=== PATIENT | female | born 1985 | race Caucasian/White ===

== ENCOUNTER 2018-04-07 17:47 | Emergency (ER) | payer OTHER ==
[~2018-04-07] VITALS: Ht 162.6 cm; Wt 59.0 kg
[2018-04-07 17:48] VITALS: Ht 162.6 cm; Wt 59.0 kg
[2018-04-07 19:03] LABS: BASOPHIL % 0.4 % (0-2); PLATELET COUNT 310 x10^3mcL (130-400); RED CELL DISTRIBUTION WIDTH 11.9 % (11.5-14.5)
[2018-04-07 19:09] LABS: CALCIUM 8.3 mg/dL (8.5-10.1); CARBON DIOXIDE 26.5 mmol/L (21-32); CHLORIDE SERUM 103 mmol/L (98-107); CREATININE SERUM 0.6 mg/dL (0.6-1.0); GFR1 > 60 mL/min; GLUCOSE SERUM 176 mg/dL (74-106); POTASSIUM SERUM 3.5 mmol/L (3.5-5.1); SODIUM SERUM 139 mmol/L (136-145)
[2018-04-07 19:14] LABS: ALBUMIN 3.6 g/dL (3.4-5.0); ALKALINE PHOSPHATASE 134 U/L (46-116); ALT/SGPT 29 U/L (14-59); AST/SGOT 27 U/L (15-37); BILIRUBIN TOTAL 0.41 mg/dL (0.20-1.00); TOTAL PROTEIN, SERUM 7.5 g/dL (6.4-8.2)
[2018-04-07 19:41] LABS: UA SPECIFIC GRAVITY 1.025 (1.005-1.035); microscopic required? YES; urine erythrocyte 3+ (NEGATIVE)
[2018-04-07 21:25] VITALS: BP 103/67
== END 2018-04-07 21:25 | disposition home or self-care (01) ==
LOC: EDBD 17:47 → ED 17:47
PROVIDERS: Emergency Medicine
DX: J45.901 Unspecified asthma with (acute) exacerbation (principal); N76.0 Acute vaginitis
CPT/HCPCS: J2930; J7030; Q0092

== ENCOUNTER 2018-07-26 11:31 | Inpatient (IN) | payer OTHER ==
[~2018-07-26] VITALS: Ht 162.6 cm; Wt 71.2 kg
[2018-07-26 12:11] LABS: BASOPHIL % 0.3 % (0-2); PLATELET COUNT 316 x10^3mcL (130-400); RED CELL DISTRIBUTION WIDTH 12.3 % (11.5-14.5)
[2018-07-26 12:22] LABS: CALCIUM 8.6 mg/dL (8.5-10.1); CARBON DIOXIDE 28.8 mmol/L (21-32); CHLORIDE SERUM 100 mmol/L (98-107); CREATININE SERUM 0.8 mg/dL (0.6-1.0); GFR1 > 60 mL/min; GLUCOSE SERUM 149 mg/dL (74-106); POTASSIUM SERUM 3.1 mmol/L (3.5-5.1); SODIUM SERUM 136 mmol/L (136-145)
[2018-07-26 12:26] LABS: ALKALINE PHOSPHATASE 139 U/L (46-116); ALT/SGPT 37 U/L (14-59); AST/SGOT 34 U/L (15-37); BILIRUBIN TOTAL 0.28 mg/dL (0.20-1.00); CHOLESTEROL 169 mg/dL (<200); HDL CHOLESTEROL 51 mg/dL (40-60)
[2018-07-26 12:39] LABS: TOTAL PROTEIN, SERUM 8.3 g/dL (6.4-8.2)
[2018-07-26 13:09] LABS: microscopic required? NO
[2018-07-26] MEDS ORDERED: PROS (13:11)
[2018-07-26 13:12] LABS: UA SPECIFIC GRAVITY <=1.005 (1.005-1.035); urine erythrocyte NEGATIVE (NEGATIVE)
[2018-07-26 15:12] VITALS: BP 115/79
[2018-07-26 15:14] VITALS: Ht 162.6 cm; Wt 71.2 kg
[2018-07-26 16:44] VITALS: BP 101/70
[2018-07-26 21:19] VITALS: BP 102/64
[2018-07-27 05:45] VITALS: BP 124/76
[2018-07-27 06:44] LABS: CALCIUM 9.3 mg/dL (8.5-10.1); CARBON DIOXIDE 24.4 mmol/L (21-32); CHLORIDE SERUM 105 mmol/L (98-107); CREATININE SERUM 0.8 mg/dL (0.6-1.0); GFR1 > 60 mL/min; GLUCOSE SERUM 161 mg/dL (74-106); POTASSIUM SERUM 3.7 mmol/L (3.5-5.1); SODIUM SERUM 140 mmol/L (136-145)
[2018-07-27 08:02] LABS: BASOPHIL % 0 % (0-2); PLATELET COUNT 315 x10^3mcL (130-400); RED CELL DISTRIBUTION WIDTH 12.9 % (11.5-14.5)
[2018-07-27 09:43] VITALS: BP 122/71
[2018-07-27 13:00] VITALS: BP 112/77
[2018-07-27 17:59] VITALS: BP 117/80
[2018-07-27 20:58] VITALS: BP 100/73
[2018-07-28 05:32] VITALS: BP 107/57
[2018-07-28 08:15] VITALS: BP 115/72
[2018-07-28] MEDS ORDERED: ZIT250 PO (08:22)
[2018-07-28] MEDS ORDERED: ZITHROMAX TRI-500 MG PO (08:42)
[2018-07-28 08:56] VITALS: BP 107/57
== END 2018-07-28 09:15 | disposition home or self-care (01) | DRG 141 ==
LOC: ED 11:31 → DU 14:13
PROVIDERS: Emergency Medicine; ADMIT Family Medicine
DX: J45.901 Unspecified asthma with (acute) exacerbation (principal); J96.01 Acute respiratory failure with hypoxia; N17.0 Acute kidney failure with tubular necrosis; E87.6 Hypokalemia; F12.10 Cannabis abuse, uncomplicated; L30.9 Dermatitis, unspecified; F17.210 Nicotine dependence, cigarettes, uncomplicated
CPT/HCPCS: 36600; 87804; 90658; 94150; 99406; J2920; J2930; J7613; J7620; J7626; Q0092

== ENCOUNTER 2018-08-24 03:09 | Emergency (ER) | payer OTHER ==
[~2018-08-24] VITALS: Ht 162.6 cm; Wt 70.8 kg
[~2018-08-24 03:09] MED LIST: PROS; ZIT250 PO; ZITHROMAX TRI-500 MG PO
[2018-08-24 03:15] VITALS: Ht 162.6 cm; Wt 70.8 kg
[2018-08-24 03:50] LABS: BASOPHIL % 0.7 % (0-2); PLATELET COUNT 398 x10^3mcL (130-400); RED CELL DISTRIBUTION WIDTH 12.2 % (11.5-14.5)
[2018-08-24 03:59] LABS: CALCIUM 8.9 mg/dL (8.5-10.1); CARBON DIOXIDE 26.9 mmol/L (21-32); CHLORIDE SERUM 104 mmol/L (98-107); CREATININE SERUM 0.6 mg/dL (0.6-1.0); GFR1 > 60 mL/min; GLUCOSE SERUM 99 mg/dL (74-106); POTASSIUM SERUM 3.6 mmol/L (3.5-5.1); SODIUM SERUM 138 mmol/L (136-145)
[2018-08-24 04:05] LABS: ALBUMIN 3.9 g/dL (3.4-5.0); ALKALINE PHOSPHATASE 146 U/L (46-116); ALT/SGPT 34 U/L (14-59); AST/SGOT 24 U/L (15-37); BILIRUBIN TOTAL 0.3 mg/dL (0.20-1.00)
[2018-08-24 05:43] VITALS: BP 109/79
== END 2018-08-24 05:43 | disposition home or self-care (01) ==
LOC: ED 03:09
PROVIDERS: Emergency Medicine
DX: R06.02 Shortness of breath (principal); J45.901 Unspecified asthma with (acute) exacerbation; J45.909 Unspecified asthma, uncomplicated
CPT/HCPCS: J2930; J7030; J7613; J7644; Q0092

== ENCOUNTER 2018-09-05 20:21 | Emergency (ER) | payer OTHER ==
[~2018-09-05] VITALS: Ht 162.6 cm; Wt 69.4 kg
[2018-09-05 20:25] VITALS: Ht 162.6 cm; Wt 69.4 kg
[2018-09-05 22:45] VITALS: BP 111/66
== END 2018-09-05 22:40 | disposition home or self-care (01) ==
LOC: ED 20:21
DX: J45.901 Unspecified asthma with (acute) exacerbation (principal)
CPT/HCPCS: J2930; J7613

== ENCOUNTER 2018-09-26 19:03 | Emergency (ER) | payer OTHER | END 2018-09-26 21:08 | disposition home or self-care (01) | LOC: ED 19:03 ==

== ENCOUNTER 2018-11-04 19:51 | Inpatient (IN) | payer MEDICAID ==
[~2018-11-04] VITALS: Ht 162.6 cm; Wt 69.9 kg
[2018-11-04 19:55] VITALS: Ht 162.6 cm; Wt 69.9 kg
--- NOTE | 2018-11-04 20:02 | NUR ---
PT BIB [facility] FROM HOME S/P SOB THAT STARTED THIS EVENING. PT BROUGHT IN ON BIPAP WITH NOTED SOB. PT MOVED TO BED AND MONITORS PLACED. PT TRANSFERRED TO HOSPITAL BIPAP WITH NOTED O2 SAT IMPROVING TO 95%.
--- NOTE | 2018-11-04 20:20 | NUR ---
PT NOTED TO BE CALMER, WITH SOME RELIEF IN SOB WHILE ON BIPAP. PT ABLE TO ANSWER YES OR NO QUESTIONS.
[2018-11-04 20:41] LABS: BASOPHIL % 0.8 % (0-2); PLATELET COUNT 370 x10^3mcL (130-400); RED CELL DISTRIBUTION WIDTH 12.8 % (11.5-14.5)
[2018-11-04 20:42] LABS: CALCIUM 8.7 mg/dL (8.5-10.1); CARBON DIOXIDE 24.6 mmol/L (21-32); CHLORIDE SERUM 106 mmol/L (98-107); CREATININE SERUM 0.6 mg/dL (0.6-1.0); GFR1 > 60 mL/min; GLUCOSE SERUM 164 mg/dL (74-106); POTASSIUM SERUM 3.2 mmol/L (3.5-5.1); SODIUM SERUM 140 mmol/L (136-145)
[2018-11-04 20:47] LABS: ALBUMIN 3.7 g/dL (3.4-5.0); ALKALINE PHOSPHATASE 110 U/L (46-116); ALT/SGPT 26 U/L (14-59); AST/SGOT 20 U/L (15-37); BILIRUBIN TOTAL 0.48 mg/dL (0.20-1.00); TOTAL PROTEIN, SERUM 7.2 g/dL (6.4-8.2)
--- NOTE | 2018-11-04 21:44 | NUR ---
PT RESTING BACK IN BED AFTER USING BEDSIDE COMMODE. PT NOTED TO BE MORE COMFORTABLE. PT WITH BIPAP IN PLACE WITH NO SIGNS OF DISTRESS AT THIS TIME.
--- NOTE | 2018-11-04 22:25 | NUR ---
RECEIVED REPORT FROM ED RN GUNJAN. ALL CONCERNS ADDRESSED. AWAITING PT ARRIVAL.
--- NOTE | 2018-11-04 22:27 | NUR ---
REPORT GIVEN TO SARAH MAY.
--- NOTE | 2018-11-04 22:43 | NUR ---
ECG INTIATED W/ RT CIARRA.
[2018-11-04 22:48] VITALS: BP 118/75
[2018-11-04 22:56] VITALS: BP 118/75
[2018-11-04 23:03] LABS: CHOLESTEROL/HDL RATIO 3.2; MAGNESIUM 2.9 mg/dL (1.8-2.4)
[2018-11-04 23:19] LABS: UA SPECIFIC GRAVITY 1.015 (1.005-1.035); microscopic required? YES; urine erythrocyte TRACE (NEGATIVE)
--- NOTE | 2018-11-05 00:25 | NUR ---
REPORT GIVEN TO YADIRA HINDS. ALL CONCERNS ADDRESSED.
[2018-11-05 00:45] VITALS: BP 107/64
--- NOTE | 2018-11-05 00:45 | NUR ---
RECEIVED PT FROM ICU VIA WHEELCHAIR, ACCOMPANIED BY RN. PT AA&O X4. NO SOB ON ROOM AIR. BREATHING EVEN AND UNLABORED. NO C/O PAIN. NO DISTRESS NOTED. IV TO RAC AND LAC, PATENT AND INTACT. ORIENTED PT TO ROOM. SAFETY MEASURES IN PLACE. BED IN LOWEST POSITION. SIDE RAILS UP X2. DEMONSTRATED HOW TO USE THE CALL LIGHT. CALL LIGHT WITHIN REACH.
[2018-11-05 01:06] LABS: AMPHETAMINE QUAL UR NONE DETECTED (See below)
[2018-11-05 05:50] VITALS: BP 99/67
[2018-11-05 06:41] LABS: BASOPHIL % 0.3 % (0-2); PLATELET COUNT 327 x10^3mcL (130-400); RED CELL DISTRIBUTION WIDTH 12.6 % (11.5-14.5)
--- NOTE | 2018-11-05 06:56 | NUR ---
PT RESTED IN INTERVALS DURING SHIFT. NO SOB ON ROOM AIR. C/O HEADACHE, TYLENOL GIVEN. SAFETY MEASURES MAINTAINED. ALL NEEDS ATTENDED TO. WILL ENDORSE CONTINUITY OF CARE TO ONCOMING RN.
[2018-11-05 07:17] LABS: CALCIUM 9.4 mg/dL (8.5-10.1); CARBON DIOXIDE 20.9 mmol/L (21-32); CHLORIDE SERUM 107 mmol/L (98-107); CREATININE SERUM 0.6 mg/dL (0.6-1.0); GFR1 > 60 mL/min; GLUCOSE SERUM 147 mg/dL (74-106); MAGNESIUM 2.4 mg/dL (1.8-2.4); PHOSPHOROUS 1.8 mg/dL (2.5-4.9); POTASSIUM SERUM 3.9 mmol/L (3.5-5.1); SODIUM SERUM 141 mmol/L (136-145)
--- NOTE | 2018-11-05 07:25 | NUR ---
RECEIVED PT IN BED. ASSESSED AND DOCUMENTED. DENIES ANY PAIN. NO SOB NOTED. SAFTEY PRECAUTIONS ARE IN PLACE. WILL MONITOR.
[2018-11-05 09:30] VITALS: BP 94/55
[2018-11-05] MEDS ORDERED: FLONS (10:22)
[2018-11-05] MEDS ORDERED: PULMICORT0.25 MG/2 NEB (10:24)
[2018-11-05] MEDS ORDERED: MEDDP PO (10:32)
[2018-11-05] MEDS ORDERED: ALBUTEROL SULFAT3 M3 IH (10:32)
--- NOTE | 2018-11-05 11:30 | NUR ---
PT IS STABLE. INFORMED PT SHE HAS BEEN DISCHARGED. SHE SAID SHE WILL CALL FOR RIDE.
[2018-11-05 12:49] VITALS: BP 115/80
[2018-11-05 13:18] VITALS: BP 115/80
--- NOTE | 2018-11-05 14:20 | NUR ---
PT'S HR IS IN 130. CHECKED ON PT, SHE SAID SHE JUST HAD BREATHING TX BUT NO PALPITATION AND CHEST PAIN. HR IS FLUTUATING FROM 120'S TO 107. PT IS STABLE. NO SOB NOTED. OTHER V/S STABLE. PAGED TO INFORM. CHARGE NURSE AWARE.
--- NOTE | 2018-11-05 16:00 | NUR ---
INFORMED ABOUT PT ON AND OFF HAVING ST FLUTUATING FROM 90 TO 120'S. SAID IT'S BECAUSE OF PT HAS BEEN GETTING ALBUTEROL INH BUT PT IS STABLE, OTHER V/S STABLE, DENIES ANY CHEST PAIN. SAID PT STABLE TO GET DISCHARGE. INFORMED PT. CHARGE NURSE AWARE.
--- NOTE | 2018-11-05 16:10 | NUR ---
DISCHARGE INSTRUCTIONS AND PRESCRIPTIONS GIVEN. PB SIGNED AND SENT WITH PT. IV'S TO RAC AND LAC REMOVED AND DRESSING APPLIED. HR IS 95 THIS TIME. TELE REMOVED. PT DENIES ANY PAIN. AUTOMOTIVE DETAILER WHEELED PT DOWN TO LOBBY. PT'S FRIEND IN THE LOBBY TO [employer] PT. PT IS STABLE. NO SOB NOTED.
== END 2018-11-05 17:10 | disposition home or self-care (01) | DRG 141 ==
LOC: ED 19:51 → IC 21:46 → DU 11-05 00:44
PROVIDERS: Emergency Medicine; ADMIT General Practice
DX: J45.901 Unspecified asthma with (acute) exacerbation (principal); J96.01 Acute respiratory failure with hypoxia; E87.6 Hypokalemia; E83.41 Hypermagnesemia; E83.39 Other disorders of phosphorus metabolism; J01.90 Acute sinusitis, unspecified; Z68.27 Body mass index [BMI] 27.0-27.9, adult; Z87.891 Personal history of nicotine dependence
CPT/HCPCS: 36600; 83880; 90732; 94150; J0171; J2405; J2920; J2930; J3475; J3490; J7030; J7613; J7620; J7644; Q0092